=== PATIENT | male | born 1980 | race Caucasian/White ===

== ENCOUNTER 2020-11-14 20:43 | Emergency (ER) | payer MEDICAID ==
[~2020-11-14] VITALS: Ht 182.9 cm; Wt 104.3 kg
[2020-11-14 20:53] VITALS: BP_SYST 145
[2020-11-14] MEDS ORDERED: IBUP-1971 PO (21:50)
[2020-11-14] MEDS ORDERED: CEPH-568 PO (21:50)
[2020-11-14] MEDS ORDERED: LOPE2CAP PO (21:50)
[2020-11-14] MEDS ORDERED: PRED20TA PO (21:50)
[2020-11-14 22:04] VITALS: BP_SYST 145
== END 2020-11-14 22:04 | disposition home or self-care (01) ==
LOC: SED 20:43
DX: L03.115 Cellulitis of right lower limb (principal); L03.116 Cellulitis of left lower limb
CPT/HCPCS: 99283

== ENCOUNTER 2023-09-30 22:38 | Inpatient (IN) | payer MEDICAID ==
[~2023-09-30] VITALS: Ht 182.9 cm; Wt 97.5 kg
[~2023-09-30 22:38] MED LIST: CEPH-568 PO; IBUP-1971 PO; LOPE2CAP PO; PRED20TA PO
[2023-09-30 22:52] VITALS: BP_SYST 123; PULSE 110; RESP 17; TEMP 98; O2SAT 98
[2023-10-01 02:50] LABS: CALCIUM 7.7 mg/dL (8.4-11.0); CREATININE 6.58 mg/dL (0.55-1.30); POTASSIUM 3.9 mmol/L (3.5-5.1)
[2023-10-01 02:54] LABS: ALBUMIN 2.2 g/dL (3.4-4.8); TOTAL BILIRUBIN 0.7 mg/dL (0.0-1.0); TOTAL PROTEIN, SERUM 7.5 g/dL (6.4-8.3)
[2023-10-01 03:02] LABS: BASOPHILS % (AUTO) 0.2 % (0.0-2.0); EOSINOPHILS # (AUTO) 0.3 K/uL (0.0-0.4); EOSINOPHILS % (AUTO) 1.5 % (0.0-4.0); HEMATOCRIT 37.1 % (36-54); HEMOGLOBIN 12.6 g/dL (14.0-18.0); LYMPHOCYTES # (AUTO) 0.6 K/uL (1.0-5.5); LYMPHOCYTES % (AUTO) 2.8 % (20.5-51.5); MEAN CORPUSCULAR HEMOGLOBIN 28 pg (27-31); MEAN CORPUSCULAR HGB CONC 34 % (32-36); MEAN CORPUSCULAR VOLUME 83 fL (79.0-98.0); MONOCYTES % (AUTO) 4.4 % (1.7-9.3); NEUTROPHILS # (AUTO) 20.2 K/uL (1.8-7.7); NEUTROPHILS % (AUTO) 91.1 % (40.0-70.0); PLATELET COUNT (AUTO) 65 K/uL (130-430); RED BLOOD CELL COUNT(AUTO) 4.45 MIL/uL (4.2-6.2); RED CELL DISTRIBUTION WIDTH 12.7 % (9.0-15.0); WHITE BLOOD COUNT (AUTO) 22.2 K/uL (4.8-10.8)
[2023-10-01 03:54] LABS: CLARITY/URINE CLOUDY (CLEAR); COLOR,URINE YELLOW (YELLOW)
[2023-10-01 03:57] LABS: GLUCOSE,URINE NEGATIVE (NEGATIVE); KETONES,URINE NEGATIVE (NEGATIVE); PROTEIN URINE 1+ (NEGATIVE)
[2023-10-01 03:58] LABS: BILIRUBIN,URINE NEGATIVE (NEGATIVE); BLOOD, URINE 2+ (NEGATIVE); LEUKOCYTE ESTERASE ,URINE 3+ (NEGATIVE); NITRITE, URINE NEGATIVE (NEGATIVE); UROBILINOGEN,URINE 0.2 (0.2-1.0)
[2023-10-01 05:37] LABS: WBC,URINE 20-50 /HPF (0-3)
[2023-10-01 05:38] LABS: BACTERIA,URINE MANY /HPF (None Seen)
[2023-10-01 06:12] LABS: BARBITURATE, URINE NEGATIVE (NEG <=200); BENZODIAZEPINE, URINE NEGATIVE (NEG <=150); CANNABINOID, URINE NEGATIVE (NEG <=50); COCAINE, URINE NEGATIVE (NEG <=150); METHAMPHETAMINES SCREEN,URINE NEGATIVE (NEG <=500); OPIATE, URINE NEGATIVE (NEG <=100); PHENCYCLIDINE SCREEN,URINE NEGATIVE (NEG <=25); UR TRICYCLIC ANTIDEPRESSANTS NEGATIVE (NEG <=300); URINE AMPHETAMINE POSITIVE (NEG <=500); URINE METHADONE NEGATIVE (NEG <=200); URINE OXYCODONE SCREEN NEGATIVE (NEG <=100)
[2023-10-01] MEDS: NACL 0.9% 1,000 ML IV ONE (06:42)
[2023-10-01] MEDS ORDERED: cefTRIAXone 1 GM VIAL ONE (08:55)
[2023-10-01] MEDS: cefTRIAXone 1 GM IVPB PREMIX 50 ML IV ONE (09:15)
[2023-10-01] MEDS ORDERED: NALOXONE HCL 0.4 MG/ML AMP (NARCAN) IVP PRN ×2 (10:45)
[2023-10-01] MEDS ORDERED: HYDROcodone/ACETAMIN 5-325 MG TAB (NORCO/ VICODIN) PO PRN (10:45)
[2023-10-01] MEDS ORDERED: LORazepam 2 MG/ML VIAL IVP PRN (10:45)
[2023-10-01] MEDS ORDERED: ACETAMINOPHEN 325 MG TABLET ONE (11:45)
[2023-10-01] MEDS ORDERED: IBUPROFEN 600 MG TABLET ONE (13:19)
[2023-10-01 14:21] VITALS: BP_SYST 112; PULSE 81; RESP 18; TEMP 99.9
[2023-10-01 15:47] VITALS: O2SAT 96
[2023-10-01 20:00] VITALS: BP_SYST 115; PULSE 79; RESP 18; TEMP 97.5; O2SAT 100
[2023-10-01] MEDS: D5NS 1,000 ML IV SCH (20:46)
[2023-10-01 22:00] VITALS: O2SAT 100
[2023-10-02] VITALS: BP_SYST 116; PULSE 81; RESP 18; TEMP 98.5; O2SAT 99
[2023-10-02 04:50] LABS: BASOPHILS % (AUTO) 0.1 % (0.0-2.0); EOSINOPHILS # (AUTO) 0.1 K/uL (0.0-0.4); EOSINOPHILS % (AUTO) 0.9 % (0.0-4.0); HEMATOCRIT 33.8 % (36-54); HEMOGLOBIN 11.3 g/dL (14.0-18.0); LYMPHOCYTES # (AUTO) 0.4 K/uL (1.0-5.5); LYMPHOCYTES % (AUTO) 2.8 % (20.5-51.5); MEAN CORPUSCULAR HEMOGLOBIN 28 pg (27-31); MEAN CORPUSCULAR HGB CONC 34 % (32-36); MEAN CORPUSCULAR VOLUME 83 fL (79.0-98.0); MONOCYTES # (AUTO) 0.6 K/uL (0.0-1.0); MONOCYTES % (AUTO) 4.6 % (1.7-9.3); NEUTROPHILS # (AUTO) 12.2 K/uL (1.8-7.7); NEUTROPHILS % (AUTO) 91.6 % (40.0-70.0); RED BLOOD CELL COUNT(AUTO) 4.05 MIL/uL (4.2-6.2); RED CELL DISTRIBUTION WIDTH 12.7 % (9.0-15.0); WHITE BLOOD COUNT (AUTO) 13.3 K/uL (4.8-10.8)
[2023-10-02 05:36] LABS: CREATININE 5.01 mg/dL (0.55-1.30); PHOSPHORUS 3.9 mg/dL (2.7-4.5); POTASSIUM 3.7 mmol/L (3.5-5.1)
[2023-10-02 05:43] LABS: PLATELET COUNT (AUTO) 41 K/uL (130-430)
[2023-10-02 06:01] LABS: CALCIUM 6.9 mg/dL (8.4-11.0)
[2023-10-02 07:43] LABS: ALBUMIN 1.7 g/dL (3.4-4.8); BILIRUBIN,DIRECT 0.5 mg/dL (0.0-0.3); TOTAL BILIRUBIN 0.7 mg/dL (0.0-1.0); TOTAL PROTEIN, SERUM 6.1 g/dL (6.4-8.3)
[2023-10-02 08:00] VITALS: O2SAT 99
[2023-10-02] MEDS: cefTRIAXone 1 GM IVPB PREMIX 50 ML IV SCH (08:07)
[2023-10-02] MEDS: CALCIUM GLUC 2 GM/100ML-NACL 100 ML IV ONE (08:07)
[2023-10-02] MEDS: ACETAMINOPHEN 325 MG TABLET PO PRN (08:28)
[2023-10-02 08:29] VITALS: BP_SYST 113; PULSE 82; RESP 18; TEMP 100.9; O2SAT 99
[2023-10-02 12:11] VITALS: BP_SYST 110; PULSE 80; RESP 18; TEMP 99.9; O2SAT 99
[2023-10-02] MEDS: ONDANSETRON HCL 4 MG/2 ML VIAL IVP PRN (12:40)
[2023-10-02] MEDS: TAMSULOSIN HCL 0.4 MG CAP PO SCH (15:48)
[2023-10-02] MEDS: CEFEPIME 1 GM in D5W 50 ML IV SCH (16:03)
[2023-10-02 16:31] LABS: INR 1.1 (0.80-1.20); PROTHROMBIN TIME 11.8 SECS (9.5-12.5)
[2023-10-02 20:00] VITALS: BP_SYST 94; PULSE 132; RESP 18; TEMP 100.9; O2SAT 96
[2023-10-02] MEDS: metroNIDAZOLE 500 mg/NS 100 ML IV SCH (23:02)
[2023-10-03 00:13] VITALS: BP_SYST 107; PULSE 91; RESP 18; TEMP 98.9; O2SAT 98
[2023-10-03] MEDS: MEPERIDINE HCL/PF 25 MG/ML DISP.SYRIN ONE (00:31)
[2023-10-03] MEDS: METOCLOPRAMIDE HCL 10 MG/2 ML VIAL ONE (00:31)
[2023-10-03] MEDS: IBUPROFEN 600 MG TABLET PO ONE (00:32)
[2023-10-03 05:53] LABS: ERYTHROCYTE SEDIMENTATION RATE 30 MM/HR (0-15)
[2023-10-03 06:24] LABS: INR 1.1 (0.80-1.20); PROTHROMBIN TIME 11.8 SECS (9.5-12.5)
[2023-10-03 06:48] LABS: ALBUMIN 1.6 g/dL (3.4-4.8); BASOPHILS % (AUTO) 0.1 % (0.0-2.0); CALCIUM 7.1 mg/dL (8.4-11.0); CREATININE 4.28 mg/dL (0.55-1.30); EOSINOPHILS # (AUTO) 0.1 K/uL (0.0-0.4); HEMATOCRIT 33.4 % (36-54); HEMOGLOBIN 11.3 g/dL (14.0-18.0); LYMPHOCYTES # (AUTO) 0.5 K/uL (1.0-5.5); LYMPHOCYTES % (AUTO) 4.4 % (20.5-51.5); MEAN CORPUSCULAR HEMOGLOBIN 29 pg (27-31); MEAN CORPUSCULAR HGB CONC 34 % (32-36); MEAN CORPUSCULAR VOLUME 84 fL (79.0-98.0); MONOCYTES % (AUTO) 8.4 % (1.7-9.3); NEUTROPHILS # (AUTO) 10.6 K/uL (1.8-7.7); NEUTROPHILS % (AUTO) 86.1 % (40.0-70.0); RED BLOOD CELL COUNT(AUTO) 3.98 MIL/uL (4.2-6.2); RED CELL DISTRIBUTION WIDTH 12.8 % (9.0-15.0); TOTAL BILIRUBIN 0.6 mg/dL (0.0-1.0); TOTAL PROTEIN, SERUM 6.4 g/dL (6.4-8.3); WHITE BLOOD COUNT (AUTO) 12.3 K/uL (4.8-10.8)
[2023-10-03 06:56] LABS: TOTAL IRON BIND. CAPACITY 161 ug/dL (250-450)
[2023-10-03 09:07] LABS: RETICULOCYTE COUNT 0.3 % (0.5-1.5)
[2023-10-03 10:44] LABS: PLATELET COUNT (AUTO) 45 K/uL (130-430)
[2023-10-03 14:38] VITALS: BP_SYST 104; PULSE 86; RESP 18; TEMP 98.8; O2SAT 98
[2023-10-03 20:00] VITALS: BP_SYST 106; PULSE 96; RESP 18; TEMP 98.7; O2SAT 97
[2023-10-03] MEDS: HYDROcodone/ACETAMIN 10-325 MG TAB PO PRN (23:05)
[2023-10-04] VITALS: BP_SYST 110; PULSE 95; RESP 18; TEMP 98; O2SAT 98
[2023-10-04 04:38] VITALS: O2SAT 97
[2023-10-04 05:14] LABS: ERYTHROCYTE SEDIMENTATION RATE 63 MM/HR (0-15)
[2023-10-04 05:26] LABS: BASOPHILS % (AUTO) 0.2 % (0.0-2.0); EOSINOPHILS # (AUTO) 0.2 K/uL (0.0-0.4); EOSINOPHILS % (AUTO) 1.2 % (0.0-4.0); HEMATOCRIT 31.6 % (36-54); HEMOGLOBIN 10.6 g/dL (14.0-18.0); LYMPHOCYTES # (AUTO) 0.9 K/uL (1.0-5.5); LYMPHOCYTES % (AUTO) 5.4 % (20.5-51.5); MEAN CORPUSCULAR HEMOGLOBIN 28 pg (27-31); MEAN CORPUSCULAR HGB CONC 34 % (32-36); MEAN CORPUSCULAR VOLUME 84 fL (79.0-98.0); MONOCYTES # (AUTO) 1.7 K/uL (0.0-1.0); MONOCYTES % (AUTO) 9.7 % (1.7-9.3); NEUTROPHILS # (AUTO) 14.4 K/uL (1.8-7.7); NEUTROPHILS % (AUTO) 83.5 % (40.0-70.0); PLATELET COUNT (AUTO) 74 K/uL (130-430); RED BLOOD CELL COUNT(AUTO) 3.78 MIL/uL (4.2-6.2); RED CELL DISTRIBUTION WIDTH 13.1 % (9.0-15.0); WHITE BLOOD COUNT (AUTO) 17.3 K/uL (4.8-10.8)
[2023-10-04 05:49] LABS: POTASSIUM 4.9 mmol/L (3.5-5.1)
[2023-10-04 05:50] LABS: ALBUMIN 1.6 g/dL (3.4-4.8); CALCIUM 7.1 mg/dL (8.4-11.0); CREATININE 3.67 mg/dL (0.55-1.30); PHOSPHORUS 3.7 mg/dL (2.7-4.5); TOTAL BILIRUBIN 0.5 mg/dL (0.0-1.0)
[2023-10-04 08:33] VITALS: BP_SYST 123; RESP 20; TEMP 99.1; O2SAT 98
[2023-10-04 10:06] LABS: ALPHA-1-ANTITRYPSIN, S 392 mg/dL (101-187)
[2023-10-04 11:06] LABS: AFP, TUMOR MARKER <1.8 ng/mL (0.0-6.9)
[2023-10-04 12:00] VITALS: BP_SYST 120; RESP 18; TEMP 98; O2SAT 97
[2023-10-04 12:07] LABS: FERRITIN 718 ng/mL (30-400)
[2023-10-04 13:06] LABS: ANTI NUCLEAR AB WITH REFLEX Negative (Negative)
[2023-10-04 13:12] LABS: BILIRUBIN,URINE NEGATIVE (NEGATIVE); BLOOD, URINE 2+ (NEGATIVE); CLARITY/URINE CLEAR (CLEAR); COLOR,URINE YELLOW (YELLOW); GLUCOSE,URINE NEGATIVE (NEGATIVE); KETONES,URINE NEGATIVE (NEGATIVE); LEUKOCYTE ESTERASE ,URINE 1+ (NEGATIVE); NITRITE, URINE NEGATIVE (NEGATIVE); PROTEIN URINE NEGATIVE (NEGATIVE); UROBILINOGEN,URINE 0.2 (0.2-1.0)
[2023-10-04 14:00] LABS: BACTERIA,URINE RARE /HPF (None Seen)
[2023-10-04 16:00] VITALS: BP_SYST 118; RESP 18; TEMP 98; O2SAT 98
[2023-10-04 21:00] VITALS: BP_SYST 116; PULSE 82; RESP 20; TEMP 98.4; O2SAT 98
[2023-10-05] VITALS (7 sets, daily range): BP systolic 113–122; PULSE 75–88; RESP 17–18; TEMP 98–99.3; O2SAT 97–100
[2023-10-05 05:36] LABS: ERYTHROCYTE SEDIMENTATION RATE 92 MM/HR (0-15)
[2023-10-05 05:43] LABS: BASOPHILS # (AUTO) 0.1 K/uL (0.0-0.2); BASOPHILS % (AUTO) 0.4 % (0.0-2.0); EOSINOPHILS # (AUTO) 0.2 K/uL (0.0-0.4); EOSINOPHILS % (AUTO) 1.1 % (0.0-4.0); HEMATOCRIT 32.7 % (36-54); HEMOGLOBIN 10.9 g/dL (14.0-18.0); LYMPHOCYTES # (AUTO) 1.1 K/uL (1.0-5.5); LYMPHOCYTES % (AUTO) 5.2 % (20.5-51.5); MEAN CORPUSCULAR HEMOGLOBIN 28 pg (27-31); MEAN CORPUSCULAR HGB CONC 33 % (32-36); MEAN CORPUSCULAR VOLUME 84 fL (79.0-98.0); MONOCYTES # (AUTO) 1.6 K/uL (0.0-1.0); MONOCYTES % (AUTO) 7.9 % (1.7-9.3); NEUTROPHILS # (AUTO) 17.1 K/uL (1.8-7.7); NEUTROPHILS % (AUTO) 85.4 % (40.0-70.0); PLATELET COUNT (AUTO) 153 K/uL (130-430); RED BLOOD CELL COUNT(AUTO) 3.87 MIL/uL (4.2-6.2); RED CELL DISTRIBUTION WIDTH 12.8 % (9.0-15.0)
[2023-10-05 06:25] LABS: ALBUMIN 1.8 g/dL (3.4-4.8); CALCIUM 7.3 mg/dL (8.4-11.0); CREATININE 3.22 mg/dL (0.55-1.30); PHOSPHORUS 3.5 mg/dL (2.7-4.5); POTASSIUM 5.7 mmol/L (3.5-5.1); TOTAL BILIRUBIN 0.4 mg/dL (0.0-1.0); TOTAL PROTEIN, SERUM 6.4 g/dL (6.4-8.3)
[2023-10-05] MEDS: SODIUM POLYSTYRENE SULFONATE 15 GM/60 ML UDBTL PO ONE (10:33)
[2023-10-05] MEDS: D5/0.45 NS 1,000 ML IV SCH (10:34)
[2023-10-05 12:07] LABS: CREATININE, URINE 26.9 mg/dL (Not Estab.); MICROALBUMIN URINE RANDOM 36.7 ug/mL (Not Estab.)
[2023-10-05] MEDS: FERROUS SULFATE 325 MG TABLET.DR PO SCH (21:00)
[2023-10-06] MEDS: ACETAMINOPHEN 325 MG TABLET PO PRN (00:06)
[2023-10-06 06:18] LABS: BASOPHILS # (AUTO) 0.1 K/uL (0.0-0.2); BASOPHILS % (AUTO) 0.4 % (0.0-2.0); EOSINOPHILS # (AUTO) 0.3 K/uL (0.0-0.4); EOSINOPHILS % (AUTO) 1.5 % (0.0-4.0); HEMATOCRIT 31.9 % (36-54); HEMOGLOBIN 10.8 g/dL (14.0-18.0); LYMPHOCYTES # (AUTO) 1.2 K/uL (1.0-5.5); LYMPHOCYTES % (AUTO) 6.5 % (20.5-51.5); MEAN CORPUSCULAR HEMOGLOBIN 29 pg (27-31); MEAN CORPUSCULAR HGB CONC 34 % (32-36); MEAN CORPUSCULAR VOLUME 84 fL (79.0-98.0); MONOCYTES # (AUTO) 1.3 K/uL (0.0-1.0); MONOCYTES % (AUTO) 7.1 % (1.7-9.3); NEUTROPHILS # (AUTO) 15.9 K/uL (1.8-7.7); NEUTROPHILS % (AUTO) 84.5 % (40.0-70.0); PLATELET COUNT (AUTO) 236 K/uL (130-430); RED BLOOD CELL COUNT(AUTO) 3.79 MIL/uL (4.2-6.2); WHITE BLOOD COUNT (AUTO) 18.8 K/uL (4.8-10.8)
[2023-10-06 06:41] LABS: ERYTHROCYTE SEDIMENTATION RATE 94 MM/HR (0-15)
[2023-10-06 07:15] LABS: ALBUMIN 1.7 g/dL (3.4-4.8); CREATININE 2.7 mg/dL (0.55-1.30); PHOSPHORUS 4.2 mg/dL (2.7-4.5); POTASSIUM 5.2 mmol/L (3.5-5.1); TOTAL BILIRUBIN 0.3 mg/dL (0.0-1.0); TOTAL PROTEIN, SERUM 6.2 g/dL (6.4-8.3)
[2023-10-06 07:59] VITALS: BP_SYST 120; PULSE 87; RESP 17; TEMP 97.8; O2SAT 100
[2023-10-06 09:13] VITALS: O2SAT 100
[2023-10-06 12:36] VITALS: BP_SYST 93; PULSE 67; RESP 17; TEMP 99; O2SAT 100
[2023-10-06 13:07] LABS: HEPATITIS A AB, IgM Negative (Negative); HEPATITIS B CORE AB, IgM Negative (Negative); HEPATITIS B SURFACE AG Negative (Negative); HEPATITIS C VIRUS AB Non Reactive (Non Reactive)
[2023-10-06] MEDS: SODIUM POLYSTYRENE SULFONATE 15 GM/60 ML UDBTL PO ONE (15:45)
[2023-10-06] MEDS: MAGNESIUM SULFATE 50 ML IV ONE (15:45)
[2023-10-06 16:15] VITALS: BP_SYST 100; PULSE 69; RESP 16; TEMP 98.4; O2SAT 99
[2023-10-06 20:00] VITALS: BP_SYST 109; PULSE 79; RESP 18; TEMP 98.8; O2SAT 100
[2023-10-07 02:13] VITALS: BP_SYST 170; PULSE 78; RESP 17; TEMP 97.6; O2SAT 100
[2023-10-07 06:35] LABS: BASOPHILS % (AUTO) 0.3 % (0.0-2.0); EOSINOPHILS # (AUTO) 0.2 K/uL (0.0-0.4); EOSINOPHILS % (AUTO) 1.3 % (0.0-4.0); HEMATOCRIT 29.7 % (36-54); LYMPHOCYTES # (AUTO) 1.2 K/uL (1.0-5.5); LYMPHOCYTES % (AUTO) 6.7 % (20.5-51.5); MEAN CORPUSCULAR HEMOGLOBIN 28 pg (27-31); MEAN CORPUSCULAR HGB CONC 34 % (32-36); MEAN CORPUSCULAR VOLUME 84 fL (79.0-98.0); MONOCYTES # (AUTO) 1.2 K/uL (0.0-1.0); MONOCYTES % (AUTO) 6.9 % (1.7-9.3); NEUTROPHILS # (AUTO) 14.5 K/uL (1.8-7.7); NEUTROPHILS % (AUTO) 84.8 % (40.0-70.0); PLATELET COUNT (AUTO) 348 K/uL (130-430); RED BLOOD CELL COUNT(AUTO) 3.53 MIL/uL (4.2-6.2); RED CELL DISTRIBUTION WIDTH 13.1 % (9.0-15.0); WHITE BLOOD COUNT (AUTO) 17.1 K/uL (4.8-10.8)
[2023-10-07 07:00] LABS: ALBUMIN 1.8 g/dL (3.4-4.8); CREATININE 2.44 mg/dL (0.55-1.30); PHOSPHORUS 4.4 mg/dL (2.7-4.5); POTASSIUM 4.4 mmol/L (3.5-5.1); TOTAL BILIRUBIN 0.3 mg/dL (0.0-1.0); TOTAL PROTEIN, SERUM 6.1 g/dL (6.4-8.3)
[2023-10-07 07:30] VITALS: BP_SYST 123; PULSE 76; RESP 16; TEMP 98.2; O2SAT 98
[2023-10-07 07:33] LABS: ERYTHROCYTE SEDIMENTATION RATE 63 MM/HR (0-15)
[2023-10-07 09:48] VITALS: O2SAT 99
[2023-10-07 11:30] VITALS: BP_SYST 127; PULSE 88; RESP 18; TEMP 98.4; O2SAT 96
[2023-10-07 17:30] VITALS: BP_SYST 118; PULSE 79; RESP 17; TEMP 99.1; O2SAT 95
[2023-10-07 20:00] VITALS: BP_SYST 119; PULSE 81; RESP 18; TEMP 98.6; O2SAT 100; O2SAT 99
[2023-10-08] VITALS (7 sets, daily range): BP systolic 109–124; PULSE 78–86; RESP 17–18; TEMP 98.2–99; O2SAT 95–100
[2023-10-08 05:26] LABS: BASOPHILS # (AUTO) 0.1 K/uL (0.0-0.2); BASOPHILS % (AUTO) 0.5 % (0.0-2.0); EOSINOPHILS # (AUTO) 0.1 K/uL (0.0-0.4); EOSINOPHILS % (AUTO) 0.6 % (0.0-4.0); HEMATOCRIT 28.9 % (36-54); HEMOGLOBIN 9.7 g/dL (14.0-18.0); LYMPHOCYTES # (AUTO) 1.2 K/uL (1.0-5.5); MEAN CORPUSCULAR HEMOGLOBIN 28 pg (27-31); MEAN CORPUSCULAR HGB CONC 34 % (32-36); MEAN CORPUSCULAR VOLUME 84 fL (79.0-98.0); MONOCYTES # (AUTO) 1.2 K/uL (0.0-1.0); MONOCYTES % (AUTO) 8.1 % (1.7-9.3); NEUTROPHILS # (AUTO) 12.4 K/uL (1.8-7.7); NEUTROPHILS % (AUTO) 82.8 % (40.0-70.0); PLATELET COUNT (AUTO) 398 K/uL (130-430); RED BLOOD CELL COUNT(AUTO) 3.43 MIL/uL (4.2-6.2); RED CELL DISTRIBUTION WIDTH 12.7 % (9.0-15.0)
[2023-10-08 05:34] LABS: ERYTHROCYTE SEDIMENTATION RATE 65 MM/HR (0-15)
[2023-10-08 05:53] LABS: ALBUMIN 1.8 g/dL (3.4-4.8); CALCIUM 7.2 mg/dL (8.4-11.0); CREATININE 2.2 mg/dL (0.55-1.30); PHOSPHORUS 3.8 mg/dL (2.7-4.5); POTASSIUM 4.8 mmol/L (3.5-5.1); TOTAL BILIRUBIN 0.3 mg/dL (0.0-1.0); TOTAL PROTEIN, SERUM 6.1 g/dL (6.4-8.3)
[2023-10-08 11:38] LABS: HEPATITIS A AB, IgM NEGATIVE (Negative); HEPATITIS B CORE AB, IgM NEGATIVE (Negative); HEPATITIS B SURFACE AG NEGATIVE (Negative)
[2023-10-08 11:39] LABS: HEPATITIS C VIRUS AB NON REACTIVE (0.0-0.9)
[2023-10-08] MEDS: MAGNESIUM SULFATE 50 ML IV ONE (18:12)
[2023-10-09] VITALS (7 sets, daily range): BP systolic 117–127; PULSE 70–90; RESP 18–20; TEMP 98–99.6; O2SAT 97–100
[2023-10-09 06:10] LABS: BASOPHILS # (AUTO) 0.2 K/uL (0.0-0.2); BASOPHILS % (AUTO) 1.4 % (0.0-2.0); EOSINOPHILS % (AUTO) 0.3 % (0.0-4.0); HEMATOCRIT 30.1 % (36-54); HEMOGLOBIN 9.9 g/dL (14.0-18.0); LYMPHOCYTES # (AUTO) 1.1 K/uL (1.0-5.5); LYMPHOCYTES % (AUTO) 7.7 % (20.5-51.5); MEAN CORPUSCULAR HEMOGLOBIN 28 pg (27-31); MEAN CORPUSCULAR HGB CONC 33 % (32-36); MEAN CORPUSCULAR VOLUME 85 fL (79.0-98.0); MONOCYTES # (AUTO) 0.8 K/uL (0.0-1.0); MONOCYTES % (AUTO) 5.6 % (1.7-9.3); NEUTROPHILS # (AUTO) 11.7 K/uL (1.8-7.7); PLATELET COUNT (AUTO) 491 K/uL (130-430); RED BLOOD CELL COUNT(AUTO) 3.55 MIL/uL (4.2-6.2); RED CELL DISTRIBUTION WIDTH 12.5 % (9.0-15.0); WHITE BLOOD COUNT (AUTO) 13.7 K/uL (4.8-10.8)
[2023-10-09 06:14] LABS: ERYTHROCYTE SEDIMENTATION RATE 70 MM/HR (0-15)
[2023-10-09 06:27] LABS: CALCIUM 7.4 mg/dL (8.4-11.0); CREATININE 2.32 mg/dL (0.55-1.30); PHOSPHORUS 3.2 mg/dL (2.7-4.5); POTASSIUM 4.8 mmol/L (3.5-5.1)
[2023-10-10 00:10] VITALS: BP_SYST 112; PULSE 86; RESP 18; TEMP 98.8; O2SAT 100
[2023-10-10 04:59] LABS: BASOPHILS # (AUTO) 0.1 K/uL (0.0-0.2); BASOPHILS % (AUTO) 0.5 % (0.0-2.0); EOSINOPHILS # (AUTO) 0.1 K/uL (0.0-0.4); EOSINOPHILS % (AUTO) 0.7 % (0.0-4.0); HEMATOCRIT 27.9 % (36-54); HEMOGLOBIN 9.4 g/dL (14.0-18.0); LYMPHOCYTES # (AUTO) 1.2 K/uL (1.0-5.5); LYMPHOCYTES % (AUTO) 8.8 % (20.5-51.5); MEAN CORPUSCULAR HEMOGLOBIN 28 pg (27-31); MEAN CORPUSCULAR HGB CONC 34 % (32-36); MEAN CORPUSCULAR VOLUME 85 fL (79.0-98.0); MONOCYTES % (AUTO) 7.6 % (1.7-9.3); NEUTROPHILS # (AUTO) 10.8 K/uL (1.8-7.7); NEUTROPHILS % (AUTO) 82.4 % (40.0-70.0); PLATELET COUNT (AUTO) 586 K/uL (130-430); RED CELL DISTRIBUTION WIDTH 12.6 % (9.0-15.0); WHITE BLOOD COUNT (AUTO) 13.1 K/uL (4.8-10.8)
[2023-10-10 05:15] LABS: ALBUMIN 1.8 g/dL (3.4-4.8); CALCIUM 7.8 mg/dL (8.4-11.0); CREATININE 2.24 mg/dL (0.55-1.30); PHOSPHORUS 3.1 mg/dL (2.7-4.5); POTASSIUM 4.9 mmol/L (3.5-5.1); TOTAL BILIRUBIN 0.2 mg/dL (0.0-1.0); TOTAL PROTEIN, SERUM 6.2 g/dL (6.4-8.3)
[2023-10-10 06:11] LABS: ERYTHROCYTE SEDIMENTATION RATE 51 MM/HR (0-15)
[2023-10-10 08:00] VITALS: BP_SYST 109; PULSE 85; RESP 16; TEMP 99; O2SAT 98
[2023-10-10 12:00] VITALS: BP_SYST 104; PULSE 91; RESP 20; TEMP 97.9; O2SAT 98
[2023-10-10] MEDS ORDERED: LORazepam 2 MG/ML VIAL IVP PRN (14:30)
[2023-10-10] MEDS ORDERED: HYDROcodone/ACETAMIN 5-325 MG TAB (NORCO/ VICODIN) PO PRN (14:30)
[2023-10-10 16:00] VITALS: BP_SYST 114; PULSE 87; RESP 16; TEMP 98.4; O2SAT 98
[2023-10-10 20:00] VITALS: BP_SYST 125; PULSE 81; RESP 18; TEMP 100.5; O2SAT 99
[2023-10-11] MEDS: HYDROcodone/ACETAMIN 10-325 MG TAB PO PRN (04:36)
[2023-10-11 11:56] LABS: ERYTHROCYTE SEDIMENTATION RATE 68 MM/HR (0-15)
[2023-10-11 12:01] LABS: BASOPHILS % (AUTO) 0.3 % (0.0-2.0); EOSINOPHILS # (AUTO) 0.1 K/uL (0.0-0.4); EOSINOPHILS % (AUTO) 0.5 % (0.0-4.0); HEMATOCRIT 29.8 % (36-54); HEMOGLOBIN 9.8 g/dL (14.0-18.0); LYMPHOCYTES # (AUTO) 0.9 K/uL (1.0-5.5); LYMPHOCYTES % (AUTO) 7.1 % (20.5-51.5); MEAN CORPUSCULAR HEMOGLOBIN 28 pg (27-31); MEAN CORPUSCULAR HGB CONC 33 % (32-36); MEAN CORPUSCULAR VOLUME 85 fL (79.0-98.0); MONOCYTES # (AUTO) 1.2 K/uL (0.0-1.0); MONOCYTES % (AUTO) 9.2 % (1.7-9.3); NEUTROPHILS # (AUTO) 10.8 K/uL (1.8-7.7); NEUTROPHILS % (AUTO) 82.9 % (40.0-70.0); PLATELET COUNT (AUTO) 628 K/uL (130-430); RED BLOOD CELL COUNT(AUTO) 3.51 MIL/uL (4.2-6.2); RED CELL DISTRIBUTION WIDTH 12.6 % (9.0-15.0)
[2023-10-11 12:40] LABS: CALCIUM 8.1 mg/dL (8.4-11.0); CREATININE 2.04 mg/dL (0.55-1.30); PHOSPHORUS 3.4 mg/dL (2.7-4.5); POTASSIUM 4.7 mmol/L (3.5-5.1)
[2023-10-11 12:58] VITALS: BP_SYST 118; PULSE 93; RESP 18; O2SAT 99
[2023-10-11] MEDS: MAGNESIUM OXIDE 400 MG TABLET PO ONE (14:44)
[2023-10-11 17:41] VITALS: BP_SYST 109; PULSE 77; RESP 18; TEMP 97.5; O2SAT 100
[2023-10-11 20:30] VITALS: BP_SYST 102; PULSE 95; RESP 18; TEMP 99.1; O2SAT 99
[2023-10-12 00:36] VITALS: BP_SYST 93; PULSE 98; RESP 18; TEMP 101; O2SAT 97
[2023-10-12] MEDS: NACL 0.9% 1,000 ML IV ONE (01:23)
[2023-10-12 02:28] VITALS: BP_SYST 120; PULSE 89; RESP 18; TEMP 99.6; O2SAT 99
[2023-10-12 04:56] LABS: ERYTHROCYTE SEDIMENTATION RATE 23 MM/HR (0-15)
[2023-10-12 05:03] LABS: BASOPHILS # (AUTO) 0.1 K/uL (0.0-0.2); BASOPHILS % (AUTO) 0.4 % (0.0-2.0); EOSINOPHILS % (AUTO) 0.2 % (0.0-4.0); HEMATOCRIT 26.7 % (36-54); HEMOGLOBIN 8.9 g/dL (14.0-18.0); LYMPHOCYTES % (AUTO) 7.3 % (20.5-51.5); MEAN CORPUSCULAR HEMOGLOBIN 29 pg (27-31); MEAN CORPUSCULAR HGB CONC 34 % (32-36); MEAN CORPUSCULAR VOLUME 85 fL (79.0-98.0); MONOCYTES # (AUTO) 1.4 K/uL (0.0-1.0); MONOCYTES % (AUTO) 10.2 % (1.7-9.3); NEUTROPHILS # (AUTO) 11.1 K/uL (1.8-7.7); NEUTROPHILS % (AUTO) 81.9 % (40.0-70.0); PLATELET COUNT (AUTO) 615 K/uL (130-430); RED BLOOD CELL COUNT(AUTO) 3.12 MIL/uL (4.2-6.2); RED CELL DISTRIBUTION WIDTH 12.8 % (9.0-15.0); WHITE BLOOD COUNT (AUTO) 13.5 K/uL (4.8-10.8)
[2023-10-12 05:24] LABS: ALBUMIN 1.8 g/dL (3.4-4.8); CALCIUM 7.8 mg/dL (8.4-11.0); CREATININE 2.31 mg/dL (0.55-1.30); PHOSPHORUS 2.7 mg/dL (2.7-4.5); POTASSIUM 5.7 mmol/L (3.5-5.1); TOTAL BILIRUBIN 0.3 mg/dL (0.0-1.0); TOTAL PROTEIN, SERUM 6.4 g/dL (6.4-8.3)
[2023-10-12] MEDS: MAGNESIUM OXIDE 400 MG TABLET PO SCH (09:00)
[2023-10-12] MEDS: MAGNESIUM SULFATE 50 ML IV ONE (11:32)
[2023-10-12] MEDS: SODIUM POLYSTYRENE SULFONATE 15 GM/60 ML UDBTL PO ONE (13:15)
[2023-10-12 16:06] LABS: BILIRUBIN,URINE NEGATIVE (NEGATIVE); BLOOD, URINE NEGATIVE (NEGATIVE); CLARITY/URINE CLEAR (CLEAR); COLOR,URINE YELLOW (YELLOW); GLUCOSE,URINE NEGATIVE (NEGATIVE); KETONES,URINE NEGATIVE (NEGATIVE); LEUKOCYTE ESTERASE ,URINE NEGATIVE (NEGATIVE); NITRITE, URINE NEGATIVE (NEGATIVE); PROTEIN URINE NEGATIVE (NEGATIVE); UROBILINOGEN,URINE 0.2 (0.2-1.0)
[2023-10-12] MEDS: PIPERACILLIN/TAZO 2.25G/DEX-IS 50 ML IV SCH (18:00)
[2023-10-12 20:10] VITALS: BP_SYST 103; PULSE 86; RESP 18; TEMP 99.4; O2SAT 99
[2023-10-13 00:18] VITALS: BP_SYST 123; PULSE 91; RESP 18; TEMP 98.9; O2SAT 100
[2023-10-13 07:43] LABS: BASOPHILS # (AUTO) 0.1 K/uL (0.0-0.2); EOSINOPHILS % (AUTO) 0.2 % (0.0-4.0); HEMATOCRIT 25.5 % (36-54); HEMOGLOBIN 8.8 g/dL (14.0-18.0); LYMPHOCYTES # (AUTO) 1.1 K/uL (1.0-5.5); LYMPHOCYTES % (AUTO) 10.3 % (20.5-51.5); MEAN CORPUSCULAR HEMOGLOBIN 29 pg (27-31); MEAN CORPUSCULAR HGB CONC 34 % (32-36); MEAN CORPUSCULAR VOLUME 84 fL (79.0-98.0); MONOCYTES # (AUTO) 1.3 K/uL (0.0-1.0); MONOCYTES % (AUTO) 12.2 % (1.7-9.3); NEUTROPHILS # (AUTO) 8.2 K/uL (1.8-7.7); NEUTROPHILS % (AUTO) 76.3 % (40.0-70.0); PLATELET COUNT (AUTO) 560 K/uL (130-430); RED BLOOD CELL COUNT(AUTO) 3.03 MIL/uL (4.2-6.2); RED CELL DISTRIBUTION WIDTH 12.5 % (9.0-15.0); WHITE BLOOD COUNT (AUTO) 10.7 K/uL (4.8-10.8)
[2023-10-13 08:00] VITALS: O2SAT 99
[2023-10-13 08:01] LABS: ALBUMIN 1.8 g/dL (3.4-4.8); CALCIUM 8.1 mg/dL (8.4-11.0); CREATININE 2.07 mg/dL (0.55-1.30); PHOSPHORUS 3.1 mg/dL (2.7-4.5); POTASSIUM 4.9 mmol/L (3.5-5.1); TOTAL BILIRUBIN 0.3 mg/dL (0.0-1.0); TOTAL PROTEIN, SERUM 6.5 g/dL (6.4-8.3)
[2023-10-13 08:04] VITALS: BP_SYST 106; PULSE 90; RESP 18; TEMP 99.6; O2SAT 99
[2023-10-13 08:06] LABS: ERYTHROCYTE SEDIMENTATION RATE 76 MM/HR (0-15)
[2023-10-13 11:24] VITALS: BP_SYST 128; PULSE 96; RESP 16; TEMP 102; O2SAT 99
[2023-10-13] MEDS: MAGNESIUM SULFATE 50 ML IV ONE (15:19)
[2023-10-13 16:13] VITALS: BP_SYST 117; PULSE 86; RESP 16; TEMP 98.6; O2SAT 98
[2023-10-13 20:00] VITALS: BP_SYST 134; PULSE 86; RESP 18; TEMP 98.2; O2SAT 96
[2023-10-14 00:39] VITALS: BP_SYST 110; PULSE 85; RESP 17; TEMP 96.9; O2SAT 97
[2023-10-14 04:00] VITALS: BP_SYST 128; PULSE 80; RESP 18; TEMP 97.8; O2SAT 98
[2023-10-14 07:07] LABS: BASOPHILS # (AUTO) 0.1 K/uL (0.0-0.2); EOSINOPHILS % (AUTO) 0.2 % (0.0-4.0); HEMATOCRIT 26.6 % (36-54); HEMOGLOBIN 8.9 g/dL (14.0-18.0); LYMPHOCYTES # (AUTO) 1.1 K/uL (1.0-5.5); MEAN CORPUSCULAR HEMOGLOBIN 28 pg (27-31); MEAN CORPUSCULAR HGB CONC 34 % (32-36); MEAN CORPUSCULAR VOLUME 85 fL (79.0-98.0); MONOCYTES # (AUTO) 1.2 K/uL (0.0-1.0); MONOCYTES % (AUTO) 9.9 % (1.7-9.3); NEUTROPHILS # (AUTO) 9.9 K/uL (1.8-7.7); NEUTROPHILS % (AUTO) 79.9 % (40.0-70.0); PLATELET COUNT (AUTO) 536 K/uL (130-430); RED BLOOD CELL COUNT(AUTO) 3.15 MIL/uL (4.2-6.2); RED CELL DISTRIBUTION WIDTH 12.4 % (9.0-15.0); WHITE BLOOD COUNT (AUTO) 12.3 K/uL (4.8-10.8)
[2023-10-14 07:24] LABS: ERYTHROCYTE SEDIMENTATION RATE 36 MM/HR (0-15)
[2023-10-14 07:41] LABS: CALCIUM 8.3 mg/dL (8.4-11.0); CREATININE 2.29 mg/dL (0.55-1.30); PHOSPHORUS 3.3 mg/dL (2.7-4.5); POTASSIUM 5.1 mmol/L (3.5-5.1)
[2023-10-14 08:00] VITALS: BP_SYST 121; PULSE 82; RESP 16; TEMP 98.2; O2SAT 99
[2023-10-14 12:00] VITALS: BP_SYST 109; PULSE 87; RESP 14; TEMP 99; O2SAT 99
[2023-10-14 16:00] VITALS: BP_SYST 112; PULSE 75; RESP 16; TEMP 98.4; O2SAT 99
[2023-10-14 20:00] VITALS: BP_SYST 106; PULSE 79; RESP 16; TEMP 97.8; O2SAT 100
[2023-10-15] VITALS: BP_SYST 114; PULSE 78; RESP 18; TEMP 97.8; O2SAT 100
[2023-10-15 06:01] LABS: BASOPHILS # (AUTO) 0.1 K/uL (0.0-0.2); BASOPHILS % (AUTO) 0.6 % (0.0-2.0); EOSINOPHILS % (AUTO) 0.4 % (0.0-4.0); HEMATOCRIT 25.7 % (36-54); HEMOGLOBIN 8.6 g/dL (14.0-18.0); LYMPHOCYTES # (AUTO) 1.1 K/uL (1.0-5.5); LYMPHOCYTES % (AUTO) 11.1 % (20.5-51.5); MEAN CORPUSCULAR HEMOGLOBIN 28 pg (27-31); MEAN CORPUSCULAR HGB CONC 33 % (32-36); MEAN CORPUSCULAR VOLUME 84 fL (79.0-98.0); MONOCYTES # (AUTO) 1.1 K/uL (0.0-1.0); NEUTROPHILS # (AUTO) 7.9 K/uL (1.8-7.7); NEUTROPHILS % (AUTO) 76.9 % (40.0-70.0); PLATELET COUNT (AUTO) 513 K/uL (130-430); RED BLOOD CELL COUNT(AUTO) 3.05 MIL/uL (4.2-6.2); RED CELL DISTRIBUTION WIDTH 12.4 % (9.0-15.0); WHITE BLOOD COUNT (AUTO) 10.3 K/uL (4.8-10.8)
[2023-10-15 06:20] LABS: ALBUMIN 1.9 g/dL (3.4-4.8); CALCIUM 8.1 mg/dL (8.4-11.0); CREATININE 2.27 mg/dL (0.55-1.30); PHOSPHORUS 3.4 mg/dL (2.7-4.5); POTASSIUM 4.6 mmol/L (3.5-5.1); TOTAL BILIRUBIN 0.3 mg/dL (0.0-1.0); TOTAL PROTEIN, SERUM 6.8 g/dL (6.4-8.3)
[2023-10-15 07:05] LABS: ERYTHROCYTE SEDIMENTATION RATE 46 MM/HR (0-15)
[2023-10-15 08:15] VITALS: BP_SYST 103; PULSE 83; RESP 19; TEMP 97.7; O2SAT 100
[2023-10-15 11:18] VITALS: BP_SYST 112; PULSE 87; RESP 17; TEMP 99.3; O2SAT 100
[2023-10-15 16:57] VITALS: BP_SYST 122; PULSE 84; RESP 18; TEMP 99.8; O2SAT 99
[2023-10-15 20:05] VITALS: BP_SYST 124; PULSE 89; RESP 20; TEMP 98.9; O2SAT 98
[2023-10-15] MEDS: EPOETIN ALFA 4,000 UNITS/ML VIAL SUBCUT ONE (21:15)
[2023-10-16 00:15] VITALS: BP_SYST 148; PULSE 86; RESP 20; TEMP 99.5
[2023-10-16 05:50] LABS: BASOPHILS # (AUTO) 0.1 K/uL (0.0-0.2); BASOPHILS % (AUTO) 1.1 % (0.0-2.0); EOSINOPHILS # (AUTO) 0.1 K/uL (0.0-0.4); EOSINOPHILS % (AUTO) 0.6 % (0.0-4.0); HEMATOCRIT 25.2 % (36-54); HEMOGLOBIN 8.4 g/dL (14.0-18.0); LYMPHOCYTES % (AUTO) 11.6 % (20.5-51.5); MEAN CORPUSCULAR HEMOGLOBIN 28 pg (27-31); MEAN CORPUSCULAR HGB CONC 33 % (32-36); MEAN CORPUSCULAR VOLUME 85 fL (79.0-98.0); MONOCYTES % (AUTO) 11.4 % (1.7-9.3); NEUTROPHILS # (AUTO) 6.7 K/uL (1.8-7.7); NEUTROPHILS % (AUTO) 75.3 % (40.0-70.0); PLATELET COUNT (AUTO) 436 K/uL (130-430); RED BLOOD CELL COUNT(AUTO) 2.98 MIL/uL (4.2-6.2); RED CELL DISTRIBUTION WIDTH 12.5 % (9.0-15.0); WHITE BLOOD COUNT (AUTO) 8.8 K/uL (4.8-10.8)
[2023-10-16 05:52] LABS: ERYTHROCYTE SEDIMENTATION RATE 49 MM/HR (0-15)
[2023-10-16 06:33] LABS: CALCIUM 8.1 mg/dL (8.4-11.0); CREATININE 2.23 mg/dL (0.55-1.30); PHOSPHORUS 3.4 mg/dL (2.7-4.5); POTASSIUM 4.5 mmol/L (3.5-5.1)
[2023-10-16 07:54] VITALS: BP_SYST 124; PULSE 77; RESP 16; TEMP 98.1; O2SAT 94
[2023-10-16 08:00] VITALS: O2SAT 94
[2023-10-16] MEDS ORDERED: FERR324T11 PO (10:43)
[2023-10-16] MEDS ORDERED: TAMS0.4C96 PO (10:43)
[2023-10-16] MEDS ORDERED: MAGN400T10 PO (10:43)
[2023-10-16] MEDS ORDERED: AUG875 PO (10:43)
[2023-10-16 11:45] VITALS: BP_SYST 117; PULSE 85; RESP 19; TEMP 97.9; O2SAT 98
[2023-10-16 17:23] VITALS: BP_SYST 116; PULSE 82; RESP 18; TEMP 98.4; O2SAT 97
[2023-10-16 20:03] VITALS: BP_SYST 132; PULSE 91; RESP 20; TEMP 97.5; O2SAT 99
[2023-10-17] VITALS: BP_SYST 141; PULSE 89; RESP 20; TEMP 98.3; O2SAT 98
[2023-10-17 05:04] LABS: ERYTHROCYTE SEDIMENTATION RATE 23 MM/HR (0-15)
[2023-10-17 05:15] LABS: BASOPHILS # (AUTO) 0.1 K/uL (0.0-0.2); BASOPHILS % (AUTO) 1.3 % (0.0-2.0); EOSINOPHILS # (AUTO) 0.1 K/uL (0.0-0.4); EOSINOPHILS % (AUTO) 0.8 % (0.0-4.0); HEMATOCRIT 25.1 % (36-54); HEMOGLOBIN 8.5 g/dL (14.0-18.0); LYMPHOCYTES % (AUTO) 13.4 % (20.5-51.5); MEAN CORPUSCULAR HEMOGLOBIN 29 pg (27-31); MEAN CORPUSCULAR HGB CONC 34 % (32-36); MEAN CORPUSCULAR VOLUME 84 fL (79.0-98.0); MONOCYTES % (AUTO) 12.9 % (1.7-9.3); NEUTROPHILS # (AUTO) 5.5 K/uL (1.8-7.7); NEUTROPHILS % (AUTO) 71.6 % (40.0-70.0); PLATELET COUNT (AUTO) 398 K/uL (130-430); RED BLOOD CELL COUNT(AUTO) 2.98 MIL/uL (4.2-6.2); RED CELL DISTRIBUTION WIDTH 12.3 % (9.0-15.0); WHITE BLOOD COUNT (AUTO) 7.7 K/uL (4.8-10.8)
[2023-10-17 08:00] VITALS: BP_SYST 134; PULSE 80; RESP 16; TEMP 98; O2SAT 99
[2023-10-17 08:23] LABS: CALCIUM 7.9 mg/dL (8.4-11.0); CREATININE 2.24 mg/dL (0.55-1.30); PHOSPHORUS 3.6 mg/dL (2.7-4.5)
[2023-10-17 12:00] VITALS: BP_SYST 116; PULSE 86; RESP 16; TEMP 98.8; O2SAT 99
[2023-10-17 17:04] VITALS: BP_SYST 120; PULSE 82; RESP 15; TEMP 98; O2SAT 97
[2023-10-17 17:48] VITALS: BP_SYST 126; PULSE 78; RESP 15; TEMP 97.8; O2SAT 99
[2023-10-17] MEDS: EPOETIN ALFA 4,000 UNITS/ML VIAL SUBCUT SCH (17:58)
[2023-10-19 11:50] LABS: ANTI-SMOOTH MUSCLE AB QNS (0-19)
== END 2023-10-17 18:00 | disposition home or self-care (01) | DRG 720 ==
LOC: SED 22:38 → SMU 10-01 05:54
PROVIDERS: ADMIT Preventive Medicine Preventive Medicine/Occupational Environmental Medicine; ATTEND Preventive Medicine Preventive Medicine/Occupational Environmental Medicine
DX: A41.59 Other Gram-negative sepsis (principal); N17.0 Acute kidney failure with tubular necrosis; E43 Unspecified severe protein-calorie malnutrition; K72.90 Hepatic failure, unspecified without coma; E87.1 Hypo-osmolality and hyponatremia; E83.51 Hypocalcemia; D69.59 Other secondary thrombocytopenia; K74.60 Unspecified cirrhosis of liver; R16.2 Hepatomegaly with splenomegaly, not elsewhere classified; N18.5 Chronic kidney disease, stage 5; T43.651A Poisoning by methamphetamines accidental (unintentional), initial encounter; Z68.29 Body mass index [BMI] 29.0-29.9, adult; D64.9 Anemia, unspecified; R73.9 Hyperglycemia, unspecified; K52.9 Noninfective gastroenteritis and colitis, unspecified; N13.6 Pyonephrosis; D75.839 Thrombocytosis, unspecified; E83.42 Hypomagnesemia; E87.5 Hyperkalemia; F15.10 Other stimulant abuse, uncomplicated; K76.89 Other specified diseases of liver; Y92.89 Other specified places as the place of occurrence of the external cause
CPT/HCPCS: 36415; 71045; 71046; 76376; 76700; 80048; 80053; 80074; 80076; 80307; 81000; 81001; 81003; 81015; 82043; 82103; 82105; 82272; 82390; 82570; 82728; 83516; 83540; 83550; 83690; 83735; 84100; 84302; 85025; 85044; 85610; 85651; 85730; 86038; 87040; 87045-TC; 87046; 87070; 87086; 87177; 87230; 89055; 96361; 96365; 99291; G0482; J0692; J0696; J0885; J2175; J2405; J2543; J2765; J3475; J3490; J7060

== ENCOUNTER 2023-11-07 20:53 | Inpatient (IN) | payer MEDICAID ==
[~2023-11-07] VITALS: Ht 182.9 cm; Wt 89.8 kg
[~2023-11-07 20:53] MED LIST changes: +AUG875 PO; -CEPH-568 PO; +FERR324T11 PO; -IBUP-1971 PO; -LOPE2CAP PO; +MAGN400T10 PO; -PRED20TA PO; +TAMS0.4C96 PO
[2023-11-07 20:59] VITALS: BP_SYST 137; PULSE 106; RESP 20; TEMP 98.5; O2SAT 98
[2023-11-07 21:40] LABS: BASOPHILS # (AUTO) 0.1 K/uL (0.0-0.2); BASOPHILS % (AUTO) 0.4 % (0.0-2.0); EOSINOPHILS % (AUTO) 0.1 % (0.0-4.0); HEMATOCRIT 27.1 % (36-54); HEMOGLOBIN 8.8 g/dL (14.0-18.0); LYMPHOCYTES # (AUTO) 1.4 K/uL (1.0-5.5); LYMPHOCYTES % (AUTO) 10.4 % (20.5-51.5); MEAN CORPUSCULAR HEMOGLOBIN 27 pg (27-31); MEAN CORPUSCULAR HGB CONC 32 % (32-36); MEAN CORPUSCULAR VOLUME 83 fL (79.0-98.0); MONOCYTES # (AUTO) 1.5 K/uL (0.0-1.0); NEUTROPHILS # (AUTO) 10.6 K/uL (1.8-7.7); NEUTROPHILS % (AUTO) 78.1 % (40.0-70.0); PLATELET COUNT (AUTO) 239 K/uL (130-430); RED BLOOD CELL COUNT(AUTO) 3.25 MIL/uL (4.2-6.2); RED CELL DISTRIBUTION WIDTH 14.3 % (9.0-15.0); WHITE BLOOD COUNT (AUTO) 13.5 K/uL (4.8-10.8)
[2023-11-07 21:48] LABS: BILIRUBIN,URINE NEGATIVE (NEGATIVE); BLOOD, URINE 2+ (NEGATIVE); CLARITY/URINE CLOUDY (CLEAR); COLOR,URINE YELLOW (YELLOW); GLUCOSE,URINE NEGATIVE (NEGATIVE); KETONES,URINE NEGATIVE (NEGATIVE); LEUKOCYTE ESTERASE ,URINE 3+ (NEGATIVE); NITRITE, URINE NEGATIVE (NEGATIVE); PROTEIN URINE 2+ (NEGATIVE); UROBILINOGEN,URINE 0.2 (0.2-1.0)
[2023-11-07 22:01] LABS: BACTERIA,URINE MANY /HPF (None Seen); MUCUS,URINE 3+ /LPF (None Seen); OTHER CASTS, URINE WBC CASTS 1+ /LPF (None Seen); WBC,URINE >100 /HPF (0-3)
[2023-11-07 22:03] LABS: CALCIUM 8.6 mg/dL (8.4-11.0); CREATININE 2.62 mg/dL (0.55-1.30); POTASSIUM 3.8 mmol/L (3.5-5.1)
[2023-11-07 22:08] LABS: ALBUMIN 2.7 g/dL (3.4-4.8); BILIRUBIN,DIRECT 0.1 mg/dL (0.0-0.3); TOTAL BILIRUBIN 0.5 mg/dL (0.0-1.0); TOTAL PROTEIN, SERUM 8.5 g/dL (6.4-8.3)
[2023-11-07] MEDS ORDERED: PIPERACILLIN/TAZO 3.375 GM in D5W 50 ML IV ONE (22:45)
[2023-11-07] MEDS: NS 1000 ML IV.SOLN IV ONE (23:06)
[2023-11-07] MEDS: ACETAMINOPHEN 500 MG TABLET PO ONE (23:07)
[2023-11-07] MEDS: CEFEPIME 2 GM in D5W 100 ML IV ONE (23:20)
[2023-11-07] MEDS ORDERED: CEFEPIME 2 GM/VIAL (MAXIPIME) ONE (23:22)
[2023-11-08] VITALS (9 sets, daily range): BP systolic 107–128; PULSE 78–107; RESP 16–22; TEMP 98.9–102.4; O2SAT 94–99
[2023-11-08 00:27] LABS: INR 1.2 (0.80-1.20)
[2023-11-08] MEDS: PIPERACILLIN/TAZOBACTAM 3.375 GM/VIAL (ZOSYN) IV ONE (02:37)
[2023-11-08] MEDS: PIPERACILLIN/TAZO 3.375 GM in NS 50 ML IV SCH ×2 (03:21→17:58)
[2023-11-08] MEDS: ACETAMINOPHEN 325 MG TABLET PO PRN ×2 (09:46→15:32)
[2023-11-08] MEDS ORDERED: NALOXONE HCL 0.4 MG/ML AMP (NARCAN) IVP PRN ×2 (10:00)
[2023-11-08] MEDS ORDERED: LORazepam 2 MG/ML VIAL IVP PRN (10:00)
[2023-11-08] MEDS ORDERED: HYDROcodone/ACETAMIN 10-325 MG TAB PO PRN (10:00)
[2023-11-08] MEDS ORDERED: ONDANSETRON HCL 4 MG/2 ML VIAL IVP PRN (10:00)
[2023-11-08] MEDS ORDERED: HYDROcodone/ACETAMIN 5-325 MG TAB (NORCO/ VICODIN) PO PRN (10:00)
[2023-11-08] MEDS ORDERED: ACETAMINOPHEN 325 MG TABLET PO PRN (10:45)
[2023-11-08] MEDS: MAGNESIUM OXIDE 400 MG TABLET PO ONE (10:59)
[2023-11-08] MEDS: TAMSULOSIN HCL 0.4 MG CAP PO ONE (10:59)
[2023-11-08] MEDS: D5/0.45 NS 1,000 ML IV SCH (11:03)
[2023-11-08] MEDS: PIPERACILLIN/TAZO 3.375 GM in NS 50 ML IV ONE (13:09)
[2023-11-08] MEDS: FERROUS SULFATE 325 MG TABLET.DR PO SCH (17:40)
[2023-11-09] VITALS (8 sets, daily range): BP systolic 99–130; PULSE 80–94; RESP 12–18; TEMP 97.7–99.6; O2SAT 95–100
[2023-11-09 06:55] LABS: BASOPHILS % (AUTO) 0.4 % (0.0-2.0); EOSINOPHILS # (AUTO) 0.1 K/uL (0.0-0.4); EOSINOPHILS % (AUTO) 1.4 % (0.0-4.0); HEMOGLOBIN 7.3 g/dL (14.0-18.0); LYMPHOCYTES % (AUTO) 11.6 % (20.5-51.5); MEAN CORPUSCULAR HEMOGLOBIN 28 pg (27-31); MEAN CORPUSCULAR HGB CONC 33 % (32-36); MEAN CORPUSCULAR VOLUME 83 fL (79.0-98.0); MONOCYTES # (AUTO) 1.2 K/uL (0.0-1.0); MONOCYTES % (AUTO) 13.5 % (1.7-9.3); NEUTROPHILS # (AUTO) 6.3 K/uL (1.8-7.7); NEUTROPHILS % (AUTO) 73.1 % (40.0-70.0); PLATELET COUNT (AUTO) 186 K/uL (130-430); RED BLOOD CELL COUNT(AUTO) 2.63 MIL/uL (4.2-6.2); RED CELL DISTRIBUTION WIDTH 13.9 % (9.0-15.0); WHITE BLOOD COUNT (AUTO) 8.7 K/uL (4.8-10.8)
[2023-11-09 07:08] LABS: ALBUMIN 1.8 g/dL (3.4-4.8); CALCIUM 7.8 mg/dL (8.4-11.0); CREATININE 2.33 mg/dL (0.55-1.30); PHOSPHORUS 2.7 mg/dL (2.7-4.5); POTASSIUM 4.5 mmol/L (3.5-5.1); TOTAL BILIRUBIN 0.2 mg/dL (0.0-1.0); TOTAL PROTEIN, SERUM 6.4 g/dL (6.4-8.3)
[2023-11-09 07:17] LABS: HEMATOCRIT 21.9 % (36-54)
[2023-11-09] MEDS: MAGNESIUM OXIDE 400 MG TABLET PO SCH (08:30)
[2023-11-09] MEDS: TAMSULOSIN HCL 0.4 MG CAP PO SCH (08:30)
[2023-11-09] MEDS: LEVOFLOXACIN 250 MG/D5W 50 ML IV SCH (16:19)
[2023-11-09] MEDS: EPOETIN ALFA-EPBX 4,000 UNITS/ML VIAL SUBCUT ONE (18:57)
[2023-11-09] MEDS: DOCUSATE SODIUM 100 MG/10 ML UDC PO SCH (21:06)
[2023-11-10 00:05] VITALS: BP_SYST 125; PULSE 92; RESP 18; TEMP 98.6; O2SAT 98
[2023-11-10 05:29] LABS: ERYTHROCYTE SEDIMENTATION RATE 47 MM/HR (0-15)
[2023-11-10 05:50] LABS: BASOPHILS % (AUTO) 0.5 % (0.0-2.0); EOSINOPHILS # (AUTO) 0.2 K/uL (0.0-0.4); EOSINOPHILS % (AUTO) 2.3 % (0.0-4.0); HEMATOCRIT 22.4 % (36-54); HEMOGLOBIN 7.4 g/dL (14.0-18.0); LYMPHOCYTES # (AUTO) 1.2 K/uL (1.0-5.5); LYMPHOCYTES % (AUTO) 18.6 % (20.5-51.5); MEAN CORPUSCULAR HEMOGLOBIN 28 pg (27-31); MEAN CORPUSCULAR HGB CONC 33 % (32-36); MEAN CORPUSCULAR VOLUME 83 fL (79.0-98.0); MONOCYTES # (AUTO) 0.7 K/uL (0.0-1.0); MONOCYTES % (AUTO) 10.8 % (1.7-9.3); NEUTROPHILS # (AUTO) 4.5 K/uL (1.8-7.7); NEUTROPHILS % (AUTO) 67.8 % (40.0-70.0); PLATELET COUNT (AUTO) 233 K/uL (130-430); RED BLOOD CELL COUNT(AUTO) 2.71 MIL/uL (4.2-6.2); RED CELL DISTRIBUTION WIDTH 13.9 % (9.0-15.0); WHITE BLOOD COUNT (AUTO) 6.6 K/uL (4.8-10.8)
[2023-11-10 06:53] LABS: ALBUMIN 1.9 g/dL (3.4-4.8); CALCIUM 7.9 mg/dL (8.4-11.0); CREATININE 2.13 mg/dL (0.55-1.30); PHOSPHORUS 2.7 mg/dL (2.7-4.5); POTASSIUM 5.3 mmol/L (3.5-5.1); TOTAL BILIRUBIN 0.1 mg/dL (0.0-1.0); TOTAL PROTEIN, SERUM 6.8 g/dL (6.4-8.3)
[2023-11-10 07:16] VITALS: BP_SYST 105; PULSE 83; RESP 18; TEMP 97.6; O2SAT 96
[2023-11-10 07:50] LABS: TOTAL IRON BIND. CAPACITY 147 ug/dL (250-450)
[2023-11-10] MEDS: SODIUM POLYSTYRENE SULFONATE 15 GM/60 ML UDBTL PO ONE (10:48)
[2023-11-10 11:26] VITALS: BP_SYST 141; PULSE 75; RESP 16; TEMP 97.7; O2SAT 96
[2023-11-10 15:25] VITALS: BP_SYST 132; PULSE 89; RESP 16; TEMP 97.5; O2SAT 100
[2023-11-10] MEDS: FOLIC ACID 1 MG TABLET PO ONE (16:41)
[2023-11-10 16:54] LABS: URINE SODIUM, RANDOM 59 mmol/L (40-220)
[2023-11-10] MEDS: SOD FERRIC GLUC COMPLEX/SUC 125 MG in NS 100 ML IV SCH (17:53)
[2023-11-10 20:00] VITALS: BP_SYST 134; PULSE 67; RESP 18; TEMP 98.2; O2SAT 97; O2SAT 98
[2023-11-11] VITALS: BP_SYST 126; PULSE 64; RESP 18; TEMP 97.4; O2SAT 99
[2023-11-11 06:38] LABS: BASOPHILS # (AUTO) 0.1 K/uL (0.0-0.2); BASOPHILS % (AUTO) 0.8 % (0.0-2.0); EOSINOPHILS # (AUTO) 0.3 K/uL (0.0-0.4); EOSINOPHILS % (AUTO) 3.6 % (0.0-4.0); HEMATOCRIT 23.3 % (36-54); HEMOGLOBIN 7.9 g/dL (14.0-18.0); LYMPHOCYTES # (AUTO) 1.6 K/uL (1.0-5.5); MEAN CORPUSCULAR HEMOGLOBIN 28 pg (27-31); MEAN CORPUSCULAR HGB CONC 34 % (32-36); MEAN CORPUSCULAR VOLUME 82 fL (79.0-98.0); MONOCYTES # (AUTO) 0.9 K/uL (0.0-1.0); MONOCYTES % (AUTO) 12.8 % (1.7-9.3); NEUTROPHILS # (AUTO) 4.6 K/uL (1.8-7.7); NEUTROPHILS % (AUTO) 61.8 % (40.0-70.0); PLATELET COUNT (AUTO) 315 K/uL (130-430); RED BLOOD CELL COUNT(AUTO) 2.85 MIL/uL (4.2-6.2); RED CELL DISTRIBUTION WIDTH 14.3 % (9.0-15.0); WHITE BLOOD COUNT (AUTO) 7.4 K/uL (4.8-10.8)
[2023-11-11 07:05] LABS: CALCIUM 8.9 mg/dL (8.4-11.0); CREATININE 2.12 mg/dL (0.55-1.30); PHOSPHORUS 3.6 mg/dL (2.7-4.5); POTASSIUM 4.8 mmol/L (3.5-5.1)
[2023-11-11 07:50] LABS: ERYTHROCYTE SEDIMENTATION RATE 52 MM/HR (0-15)
[2023-11-11 08:00] VITALS: BP_SYST 131; PULSE 69; RESP 18; TEMP 97.9; O2SAT 98; O2SAT 99
[2023-11-11] MEDS: FOLIC ACID 1 MG TABLET PO SCH (09:06)
[2023-11-11 11:23] VITALS: BP_SYST 131; PULSE 75; RESP 16; TEMP 98.1; O2SAT 96
[2023-11-11 15:22] VITALS: BP_SYST 141; PULSE 71; RESP 15; TEMP 97.7; O2SAT 94
[2023-11-11 20:00] VITALS: BP_SYST 126; PULSE 82; RESP 16; TEMP 98.9; O2SAT 100
[2023-11-12 00:09] VITALS: BP_SYST 120; PULSE 83; RESP 18; TEMP 97.7; O2SAT 97
[2023-11-12 06:00] LABS: BASOPHILS % (AUTO) 0.6 % (0.0-2.0); EOSINOPHILS # (AUTO) 0.3 K/uL (0.0-0.4); EOSINOPHILS % (AUTO) 3.5 % (0.0-4.0); HEMATOCRIT 25.2 % (36-54); HEMOGLOBIN 8.4 g/dL (14.0-18.0); LYMPHOCYTES # (AUTO) 1.7 K/uL (1.0-5.5); LYMPHOCYTES % (AUTO) 21.1 % (20.5-51.5); MEAN CORPUSCULAR HEMOGLOBIN 27 pg (27-31); MEAN CORPUSCULAR HGB CONC 33 % (32-36); MEAN CORPUSCULAR VOLUME 82 fL (79.0-98.0); MONOCYTES # (AUTO) 0.9 K/uL (0.0-1.0); MONOCYTES % (AUTO) 11.6 % (1.7-9.3); NEUTROPHILS # (AUTO) 5.1 K/uL (1.8-7.7); NEUTROPHILS % (AUTO) 63.2 % (40.0-70.0); PLATELET COUNT (AUTO) 391 K/uL (130-430); RED BLOOD CELL COUNT(AUTO) 3.09 MIL/uL (4.2-6.2)
[2023-11-12 06:04] LABS: ERYTHROCYTE SEDIMENTATION RATE 65 MM/HR (0-15)
[2023-11-12 06:33] LABS: ALBUMIN 2.2 g/dL (3.4-4.8); CALCIUM 8.6 mg/dL (8.4-11.0); CREATININE 2.3 mg/dL (0.55-1.30); PHOSPHORUS 3.5 mg/dL (2.7-4.5); POTASSIUM 5.4 mmol/L (3.5-5.1); TOTAL BILIRUBIN 0.1 mg/dL (0.0-1.0); TOTAL PROTEIN, SERUM 7.5 g/dL (6.4-8.3)
[2023-11-12 08:00] VITALS: BP_SYST 107; PULSE 81; RESP 20; TEMP 97.6; O2SAT 96
[2023-11-12 09:50] VITALS: O2SAT 96
[2023-11-12 11:17] VITALS: BP_SYST 120; PULSE 75; RESP 16; TEMP 97.1; O2SAT 99
[2023-11-12] MEDS ORDERED: LEVO250T73 PO (14:58)
[2023-11-12] MEDS ORDERED: FOLI-43 PO (14:58)
[2023-11-12 15:05] VITALS: BP_SYST 117; PULSE 61; RESP 16; TEMP 98.3; O2SAT 100
[2023-11-12] MEDS ORDERED: EPOETIN ALFA-EPBX 4,000 UNITS/ML VIAL SUBCUT SCH (17:00)
[2023-11-12 17:51] VITALS: BP_SYST 115; PULSE 60; RESP 17; TEMP 98.3; O2SAT 99
[2023-11-14 13:06] LABS: CREATININE, URINE 91.7 mg/dL (Not Estab.); MICROALBUMIN URINE RANDOM 420.4 ug/mL (Not Estab.)
== END 2023-11-12 18:50 | disposition home or self-care (01) | DRG 720 ==
LOC: SED 20:53 → SMU 23:50
PROVIDERS: ADMIT Preventive Medicine Preventive Medicine/Occupational Environmental Medicine; ATTEND Preventive Medicine Preventive Medicine/Occupational Environmental Medicine
DX: A41.9 Sepsis, unspecified organism (principal); N17.0 Acute kidney failure with tubular necrosis; E43 Unspecified severe protein-calorie malnutrition; D63.1 Anemia in chronic kidney disease; E87.1 Hypo-osmolality and hyponatremia; N13.6 Pyonephrosis; B96.1 Klebsiella pneumoniae [K. pneumoniae] as the cause of diseases classified elsewhere; E87.5 Hyperkalemia; E83.52 Hypercalcemia; B96.89 Other specified bacterial agents as the cause of diseases classified elsewhere; N18.9 Chronic kidney disease, unspecified; N20.0 Calculus of kidney; N40.0 Benign prostatic hyperplasia without lower urinary tract symptoms; Z79.899 Other long term (current) drug therapy
CPT/HCPCS: 36415; 71045; 80048; 80053; 80076; 81000; 81001; 81015; 82043; 82570; 83540; 83550; 83605; 83690; 83735; 84100; 84302; 84484; 85025; 85610; 85651; 85730; 86592; 87040; 87081; 87086; 93005; 96365; 99291; J0692; J1956; J2543; J2916; Q5106